=== PATIENT | male | born 1950 | race Two or more races ===

== ENCOUNTER 2023-09-22 20:02 | Emergency (ER) | payer OTHER ==
[~2023-09-22] VITALS: Ht 157.5 cm; Wt 66.7 kg
[2023-09-22 22:00] LABS: Urine Bacteria NONE SEEN /hpf (None Seen); Urine WBC 286 /hpf (0 - 3)
[2023-09-22 22:01] LABS: Urine Blood 3+ /uL (Negative); Urine Clarity CLOUDY (Clear); Urine Color Red (Yellow); Urine Protein, UAD 2+ (Negative); Urine Urobilinogen Normal (Negative)
[2023-09-22 22:02] LABS: Urine Specific Gravity 1.025 (1.001-1.035)
[2023-09-22] MEDS ORDERED: LEVO750T8 PO (22:26)
[2023-09-22] MEDS ORDERED: ACET500T58 PO (22:26)
[2023-09-22] MEDS ORDERED: levoFLOXacin 250 MG TAB PO ONE (22:30)
[2023-09-22] MEDS ORDERED: IBUPROFEN 600 MG TAB PO ONE (22:30)
[2023-09-22 23:56] VITALS: BP 139/65; PULSE 116; RESP 20; TEMP 99.5; O2SAT 95
== END 2023-09-23 00:13 | disposition home or self-care (01) ==
LOC: ER 20:02
DX: N39.0 Urinary tract infection, site not specified (principal)
CPT/HCPCS: 81001